=== PATIENT | female | born 1995 | race Two or more races ===

== ENCOUNTER 2017-01-06 23:09 | Emergency (ER) | payer BC ==
--- NOTE | 2017-01-06 23:14 | PDOC ---
History of Present Illness - General Stated Complaint: lower back pain Time Seen by Provider: 01/06/17 23:13 History Source: Patient Exam Limitations: No Limitations - History of Present Illness Initial Comments: 01/06/17 23:53 This is a 21-year-old female who comes in complaining of low back pain times this evening. Patient said that she has had cloudy foul-smelling urine for several days now but denies any frequency dysuria or hematuria. Patient denies any fevers but has had some chills. Patient denies any nausea vomiting or diarrhea. Patient said she has had history of multiple urinary tract infections since she was a child. Patient has never seen a urologist or gotten a workup for her symptoms. PAST MEDICAL HISTORY: As per history of present illness PAST SURGICAL HISTORY: no significant history FAMILY HISTORY: no pertinant history SOCIAL HISTORY: Pt lives with family and is employed. MEDICATIONS: reviewed ALLERGIES: As per nursing notes Review of Systems General: No fevers or chills, no weakness, no weight loss HEENT: No change in vision. No sore throat,. No ear pain CardioVascular: No chest pain or shortness of breath Respiratory:No cough, or wheezing. Gastrointestinal: no nausea, vomitting, diarrhea or constipation, No rectal bleeding Genitourinary: No dysuria, hematuria, or frequency, back flank pain as per history of present illness Musculoskeletal: No joint or muscle pain or swelling Neurologic: No headache, vertigo, dizziness or loss of consciousness Psychiatric: nor depression Skin: No rashes or easy bruising Endocrine: no increased thirst or abnormal weight change Allergic: no skin or latex allergy All other systems reviewed and normal Exam: General: Well-nourished well-developed individual, no acute distress HEENT: Throat: Normal, tonsils normal, no erythema or exudate Neck: Supple, no meningeal signs, no lymphadenopathy Eyes::Pupils equal reactive and round, extraocular motion intact Chest: Nontender to palpation Cardiac: S1-S2 normal, regular rate and rhythm, no murmurs rubs or gallops Respiratory: Lungs clear to auscultation bilateral Abdomen: Soft, nondistended, normal bowel sounds, nontender to palpation diffusely, back there is some mild tenderness on palpation of the low back there is no CVA tenderness on palpation. Extremities: Warm, dry, no cyanosis, clubbing, or edema Skin: No rashes Neuro: Alert and oriented x3, nonfocal exam, grossly intact, normal gait Psych: Normal mood and affect 01/07/17 01:57 Assessment and plan: This is a 21-year-old female who comes in complaining of the low back pain. The patient has a urinary tract infection that most likely is also early pyelonephritis. Patient had a workup done that shows a mildly elevated white count but no left shift. Patient otherwise was afebrile and able to tolerate by mouth's without difficulty. Patient was given some Toradol for the pain and given a dose of IV ceftriaxone for the infection. Patient was given a prescription for IV Cipro and told to follow-up with a urologist. Patient does have a urologist that she can follow-up with. Past History - Past Medical History Allergies/Adverse Reactions: Allergies Allergy/AdvReac Type Severity Reaction Status Date / Time No Known Allergies Allergy Verified 01/06/17 23:16 Home Medications: Ambulatory Orders Norethindrone AC-Eth Estradiol [Norethin-Eth Estrad 1 mg-5 Mcg] 1 mg PO ONCE Ciprofloxacin HCl [Cipro] 500 mg PO BID #14 tablet 01/07/17 - Immunization History Immunization Up to Date: Yes - Suicide/Smoking/Psychosocial Hx Smoking History: Never smoked Have you smoked in the past 12 months: No Hx Alcohol Use: No Substance Use Type: None ED Treatment Course - LABORATORY CBC & Chemistry Diagram: 01/06/17 23:59 01/06/17 23:59 *DC/Admit/Observation/Transfer Diagnosis at time of Disposition: Pyelonephritis - Discharge Dispostion Disposition: HOME Condition at time of disposition: Stable - Prescriptions Prescriptions: Ciprofloxacin HCl [Cipro] 500 mg PO BID #14 tablet - Referrals Referrals: Genesis Davies MD [Primary Care Provider] - Aramis Goel MD [Staff Physician] - - Patient Instructions Additional Instructions: Make sure you drink plenty of fluids and stay well-hydrated to keep urine flowing.. For the pain you can take ibuprofen or Aleve as directed on the bottle. For the infection take Cipro 1 tablet twice a day for 7 days. It is important that you follow-up with a urologist for evaluation as to why you get so many urinary tract infections. Return to the emergency department immediately with ANY new, persistent or worsening symptoms. Continue any medications as previously prescribed by your physician. You should follow up with your primary doctor as soon as possible regarding today's emergency department visit. . Please make sure your doctor reviews the results of your emergency evaluation. Thank you for coming to the Emergency Department today for your care. It was a pleasure to see you today. Please note that your evaluation is INCOMPLETE until you follow-up with your doctor.
[2017-01-06 23:16] VITALS: TEMP 97.8; BMI 32.0
[2017-01-06 23:34] LABS: PH,URINE 6.5 (4.5-8); URINE BILIRUBIN Negative (NEGATIVE); URINE GLUCOSE (UA) Negative (NEGATIVE); URINE KETONE Negative (NEGATIVE); URINE NITRITE Negative (NEGATIVE); URINE PROTEIN Trace (NEGATIVE); URINE UROBILINOGEN 0.2 (0.2-1.0)
[2017-01-06 23:36] LABS: URINE BLOOD 2+ (NEGATIVE); URINE COLOR YELLOW; URINE LEUK ESTERASE 2+ (NEGATIVE)
[2017-01-06 23:42] LABS: URINE APPEARANCE HAZY; URINE BACTERIA FEW /hpf (NEGATIVE); URINE WBC 40-60 (3-5)
[2017-01-06] MEDS ORDERED: cefTRIAXone 1 GM/50 ML BAG (PRE-DOCKED) IVPB ONE (23:43)
[2017-01-06] MEDS ORDERED: cefTRIAXone SODIUM 1 GM VIAL ONE (23:53)
[2017-01-07 01:05] LABS: BASOPHIL 0.3 % (0-2.0); EOSINOPHIL 1.7 % (0-4.5); MCH 28.1 pg (25.7-33.7); MCHC 32.9 g/dl (32.0-36.0); MEAN CELL VOLUME 85.3 fl (80-96); NEUTROPHILS 65.5 % (42.8-82.8); PLATELET COUNT 275 K/MM3 (134-434); WHITE BLOOD COUNT 13.5 K/mm3 (4.0-10.0)
[2017-01-07 01:30] LABS: ALBUMIN 3.7 g/dl (3.4-5.0); ANION GAP 10 (8-16); BILIRUBIN,TOTAL 0.3 mg/dL (0.2-1.0); CALCIUM 8.9 mg/dL (8.5-10.1); CO2 28 mmol/L (21-32); CREATININE 0.8 mg/dL (0.55-1.02); GLUCOSE,RANDOM 87 mg/dL (74-106); SGOT/AST 11 U/L (15-37); SGPT/ALT 16 U/L (12-78); TOT PROT 7.5 g/dl (6.4-8.2)
[2017-01-07 01:31] LABS: ALK PHOS 84 U/L (45-117)
[2017-01-07] MEDS ORDERED: KETOROLAC TROMETHAMINE 30 MG/1 ML VIAL ONE (01:51)
[2017-01-07] MEDS ORDERED: KETOROLAC TROMETHAMINE 30 MG/1 ML VIAL IVPUSH ONE (01:55)
[2017-01-07 01:57] VITALS: BP 100/70; PULSE 78
== END 2017-01-07 02:03 | disposition home or self-care (01) ==
LOC: FER 23:09
PROC: 3E03329 Introduction of Other Anti-infective into Peripheral Vein, Percutaneous Approach (ICD-10-PCS; principal; 2017-01-06)
PROC: 3E0333Z Introduction of Anti-inflammatory into Peripheral Vein, Percutaneous Approach (ICD-10-PCS; 2017-01-06)
DX: N12 Tubulo-interstitial nephritis, not specified as acute or chronic (principal)
CPT/HCPCS: 36415; 80053; 81003; 81015; 84703; 85025; 87086; 87186; 99282-25

== ENCOUNTER 2017-05-10 19:50 | Emergency (ER) | payer BC ==
[2017-05-10] MEDS ORDERED: IBUPROFEN 600 MG TABLET (FP) PO ONE ×2 (19:59→20:01)
--- NOTE | 2017-05-10 19:59 | PDOC ---
History of Present Illness - History of Present Illness Initial Comments: 05/10/17 20:09 The patient is a 21 year old female, accompanied by mother, who presents to the emergency department with, approx one day of subjective fever, chills, productive cough and mild shortness of breath. The patient reports her cough is worse at night and has been interfering with her sleep. The patient reports she visited an urgent care yesterday for evaluation of mild shortness of breath but decided to come to the ED today when she noted a subjective fever beginning this morning. The patient also reports she was recently diagnosed with a sinus infection approx. 2 weeks ago and completed a treatment of Amoxicillin as prescribed. The patient reports that she did not receive a flu shot this year. She denies recent, headache or dizziness. She denies recent nausea, vomit, diarrhea or constipation. She denies recent dysuria, frequency, urgency or hematuria. She denies recent chest pain. PAST MEDICAL HISTORY: no significant history PAST SURGICAL HISTORY: no significant history FAMILY HISTORY: no pertinent history SOCIAL HISTORY: Pt lives with family and is employed. MEDICATIONS: reviewed ALLERGIES: As per nursing notes ROS General: +Fever. +Chills. No weakness, no weight loss HEENT: No change in vision. No sore throat,. No ear pain CardioVascular: +Mild shortness of breath. No chest pain. Respiratory: +Productive cough. No wheezing. Gastrointestinal: no nausea, vomiting, diarrhea or constipation, No rectal bleeding Genitourinary: No dysuria, hematuria, or frequency Musculoskeletal: No joint or muscle pain or swelling Neurologic: No headache, vertigo, dizziness or loss of consciousness Psychiatric: nor depression Skin: No rashes or easy bruising Endocrine: no increased thirst or abnormal weight change Allergic: no skin or latex allergy All other systems reviewed and normal Exam: General: Well-nourished well-developed individual, no acute distress HEENT: Throat: Normal, tonsils normal, no erythema or exudate Neck: Supple, no meningeal signs, no lymphadenopathy Eyes::Pupils equal reactive and round, extraocular motion intact Chest: Nontender to palpation Cardiac: S1-S2 normal, regular rate and rhythm, no murmurs rubs or gallops Respiratory: Lungs clear to auscultation bilateral Abdomen: Soft, nondistended, normal bowel sounds, nontender to palpation diffusely Extremities: Warm, dry, no cyanosis, clubbing, or edema Skin: No rashes Neuro: Alert and oriented x3, nonfocal exam, grossly intact, normal gait Psych: Normal mood and affect <Luis Anna - Last Filed: 05/10/17 20:14> - General History Source: Patient Exam Limitations: No Limitations - History of Present Illness Initial Comments: Chest x-ray no acute pathology 05/10/17 21:03 A portion of this note was documented by scribe services under my direction. I have reviewed the details of the note, within reason, and agree with the documentation. The case summary and management plan written by me. Assessment and plan: This is a 21-year-old female who comes in complaining of cough congestion and shortness of breath. Patient had a fever here in the emergency room for which she was given ibuprofen. Patient had a chest x-ray that was negative for any acute pathology Patient said she has had the symptoms progressive times a couple weeks for which she has had some antibiotics without relief. Patient was given some prednisone and a DuoNeb with improvement in her symptoms. Prescription sent to patient's pharmacy for a albuterol inhaler and some Tessalon Perles. Patient discharged home with her mother. <José Manuel Cervantes I - Last Filed: 05/10/17 21:06> - General Chief Complaint: Shortness of Breath Stated Complaint: FEVER, SOB Time Seen by Provider: 05/10/17 19:58 Past History <Luis Anna - Last Filed: 05/10/17 20:14> - Immunization History Immunization Up to Date: Yes - Suicide/Smoking/Psychosocial Hx Smoking History: Never smoked Have you smoked in the past 12 months: No Hx Alcohol Use: No Drug/Substance Use Hx: No Substance Use Type: None <José Manuel Cervantes I - Last Filed: 05/10/17 21:06> - Past Medical History Allergies/Adverse Reactions: Allergies Allergy/AdvReac Type Severity Reaction Status Date / Time No Known Allergies Allergy Verified 01/06/17 23:16 Home Medications: Ambulatory Orders Norethindrone AC-Eth Estradiol [Norethin-Eth Estrad 1 mg-5 Mcg] 1 mg PO ONCE Albuterol Sulfate Inhaler - [Ventolin HFA Inhaler -] 1 - 2 inh PO Q4H #1 inhaler 05/10/17 Benzonatate [Tessalon Pearls -] 100 mg PO TID #21 capsule 05/10/17 levoFLOXacin [Levaquin] 750 mg PO DAILY 05/10/17 *Physical Exam - Vital Signs Last Vital Signs Temp Pulse Resp BP Pulse Ox 102.8 F H 128 H 16 130/74 100 05/10/17 19:58 05/10/17 19:58 05/10/17 19:58 05/10/17 19:58 05/10/17 19:58 <Luis Anna - Last Filed: 05/10/17 20:14> ED Treatment Course - Medications Given in the ED: ED Medications Discontinued Medications Generic Name Dose Route Start Last Admin Trade Name Alyce PRN Reason Stop Dose Admin Ibuprofen 600 mg 05/10/17 19:59 05/10/17 20:04 Motrin - PO 05/10/17 20:00 600 mg ONCE ONE Administration <uLis Anna - Last Filed: 05/10/17 20:14> *DC/Admit/Observation/Transfer - Attestations Scribe Attestion: 05/10/17 20:13 Documentation prepared by Luis Anna, acting as medical doctor nuclear medicine for José Manuel Cervantes MD. <Luis Anna - Last Filed: 05/10/17 20:14> - Discharge Dispostion Admit: No <José Manuel Cervantes I - Last Filed: 05/10/17 21:06> Diagnosis at time of Disposition: Viral upper respiratory tract infection with cough - Discharge Dispostion Disposition: HOME Condition at time of disposition: Stable - Prescriptions Prescriptions: Albuterol Sulfate Inhaler - [Ventolin HFA Inhaler -] 1 - 2 inh PO Q4H #1 inhaler Benzonatate [Tessalon Pearls -] 100 mg PO TID #21 capsule - Patient Instructions Additional Instructions: Use the inhaler 2 puffs as often as every 4-6 hours if needed for difficulty breathing. Tessalon Perles 13 times a day for 7 days for the cough. Tylenol or Motrin as needed for fever or body aches. Return to the emergency department immediately with ANY new, persistent or worsening symptoms. Continue any medications as previously prescribed by your physician. You should follow up with your primary doctor as soon as possible regarding today's emergency department visit. . Please make sure your doctor reviews the results of your emergency evaluation. Thank you for coming to the Emergency Department today for your care. It was a pleasure to see you today. Please note that your evaluation is INCOMPLETE until you follow-up with your doctor.
[2017-05-10 20:01] VITALS: BP 130/74; PULSE 128; BMI 27.4
[2017-05-10] MEDS ORDERED: ALBUTEROL SO4 2.5/IPRATROPIUM 0.5 INH SOL 3 ML VIAL.NEB. NEB ONE ×2 (20:03→20:06)
[2017-05-10] MEDS ORDERED: predniSONE 20 MG TABLET (UD) PO ONE (20:04)
[2017-05-10] MEDS ORDERED: predniSONE 20 MG TABLET (UD) ONE (20:06)
[2017-05-10 21:12] VITALS: TEMP 99.9
== END 2017-05-10 21:12 | disposition home or self-care (01) ==
LOC: FER 19:50
PROC: 3E0F7GC Introduction of Other Therapeutic Substance into Respiratory Tract, Via Natural or Artificial Opening (ICD-10-PCS; principal; 2017-05-10)
DX: J06.9 Acute upper respiratory infection, unspecified (principal); B97.89 Other viral agents as the cause of diseases classified elsewhere; R05 Cough
CPT/HCPCS: 71046-TC-FY; 84703; 99281-25